=== PATIENT | female | born 1990 | race Caucasian/White ===

== ENCOUNTER 2017-01-03 08:28 | Inpatient (IN) | payer BC ==
[~2017-01-03] VITALS: Ht 172.7 cm; Wt 73.9 kg
[2017-01-03] VITALS (16 sets, daily range): BP systolic 101–129; BP diastolic 58–84
[2017-01-03] MEDS ORDERED: PRENATAL TABLE1 EAC3 PO (08:57)
[2017-01-03 10:07] LABS: EOSINOPHIL (%) 1.1 % (0-5); EOSINOPHIL COUNT 0.1 K/uL (0-0.3); HEMATOCRIT 34.2 % (36.0-46.0); IMMATURE GRANULOCYTE (%) 0.4 % (0.0-0.7); INSTRUMENT ABS NEUTROPHIL CT 5.2 K/uL; LYMPHOCYTE COUNT 1.6 K/uL (1.0-2.8); MCH 32.2 PG (29.0-34.0); MCHC 33.9 G/DL (30.0-36.0); MEAN PLAT.VOLUME 11.5 uM^3 (9.5-12.4); MONOCYTE (%) 8.6 % (3-12); MONOCYTE COUNT 0.7 K/uL (0-0.8); NEUTROPHIL COUNT 5.2 K/uL (1.8-6.4); PLATELET COUNT 188 K/uL (156-360); RBC DIS.WIDTH-CV 12.3 % (11.8-14.6); RBC DIS.WIDTH-SD 43.4 % (39-53); WHITE BLOOD COUNT 7.6 K/uL (4.1-10.2)
[2017-01-04] VITALS (17 sets, daily range): BP systolic 96–143; BP diastolic 52–90
[2017-01-05] VITALS (27 sets, daily range): BP systolic 86–124; BP diastolic 50–69
[2017-01-06] VITALS (7 sets, daily range): BP systolic 108–127; BP diastolic 64–81
[2017-01-06 07:33] LABS: EOSINOPHIL (%) 0.5 % (0-5); EOSINOPHIL COUNT 0.1 K/uL (0-0.3); HEMATOCRIT 31.9 % (36.0-46.0); IMMATURE GRANULOCYTE (%) 0.3 % (0.0-0.7); INSTRUMENT ABS NEUTROPHIL CT 6.9 K/uL; LYMPHOCYTE COUNT 1.4 K/uL (1.0-2.8); MCH 33.3 PG (29.0-34.0); MCHC 34.5 G/DL (30.0-36.0); MCV 96.7 FL (83-99); MEAN PLAT.VOLUME 11.4 uM^3 (9.5-12.4); MONOCYTE (%) 7.8 % (3-12); MONOCYTE COUNT 0.7 K/uL (0-0.8); NEUTROPHIL COUNT 6.9 K/uL (1.8-6.4); PLATELET COUNT 175 K/uL (156-360); RBC DIS.WIDTH-CV 12.6 % (11.8-14.6); RBC DIS.WIDTH-SD 44.6 % (39-53); WHITE BLOOD COUNT 9.1 K/uL (4.1-10.2)
[2017-01-07 03:18] VITALS: BP 113/59
[2017-01-07 08:05] VITALS: BP 118/66
[2017-01-07] MEDS ORDERED: IBUPROFEN800 MG PO (08:49)
[2017-01-07] MEDS ORDERED: ENDOCET 5-3251 EACH PO (08:49)
[2017-01-07 11:53] VITALS: BP 129/72
== END 2017-01-07 15:15 | disposition home or self-care (01) | DRG 766 ==
LOC: LDRP-OP → 2WEST 08:29 → LDRP-OP 08:39 → 2WEST 01-05 03:44 → LDRP-OP 01-27 17:24
PROVIDERS: Advanced Practice Midwife; Obstetrics & Gynecology
PROC: 10D00Z1 Extraction of Products of Conception, Low, Open Approach (ICD-10-PCS; principal; 2017-01-05)
DX: O76 Abnormality in fetal heart rate and rhythm complicating labor and delivery (principal); O69.1XX0 Labor and delivery complicated by cord around neck, with compression, not applicable or unspecified; O48.0 Post-term pregnancy; O62.1 Secondary uterine inertia; O33.9 Maternal care for disproportion, unspecified; Z3A.41 41 weeks gestation of pregnancy; Z37.0 Single live birth; Z87.891 Personal history of nicotine dependence
CPT/HCPCS: 85025; 86900; 86901; C1755; G0378; J0690; J2274; J2405; J2765; J2795; J3010; J7120